=== PATIENT | male | born 1985 | race Two or more races ===

== ENCOUNTER 2024-02-04 09:47 | Inpatient (IN) | payer SELFPAY ==
[~2024-02-04] VITALS: Ht 170.2 cm; Wt 87.1 kg
[2024-02-04] VITALS (56 sets, daily range): BP systolic 60–104; BP diastolic 28–85; PULSE 96–123; RESP 4–30; TEMP 33.336–36.114; O2SAT 92–100
[2024-02-04] MEDS: SODIUM CHLORIDE 0.9% (SEPSIS BOLUS) IV ONE ×2 (10:29→17:38)
[2024-02-04] MEDS: KETAMINE HCL 50 MG/ML 10ML IV NR (10:42)
[2024-02-04] MEDS: LEVETIRACETAM 500MG PREMIX 100 ML IV NR ×2 (10:43→11:00)
[2024-02-04] MEDS ORDERED: OCTREOTIDE 1,000 MCG in SODIUM CHLORIDE 0.9% 100 ML IV ONE (10:45)
[2024-02-04] MEDS: PROPOFOL 10MG/ML 100ML 100 ML IV SCH (10:45)
[2024-02-04] MEDS ORDERED: PANTOPRAZOLE 80 MG in SODIUM CHLORIDE 0.9% 100 ML IV SCH (10:45)
[2024-02-04 10:47] LABS: MEAN CORPUSCULAR HEMOGLOBIN 22.9 pg (28.0-32.0); MEAN CORPUSCULAR HGB CONC 24.6 g/dL (31.0-37.0); MEAN CORPUSCULAR VOLUME 93.1 fL (80.0-94.0); MEAN PLATELET VOLUME 10.9 fl (7.4-10.4); PLATELET 74 x1000/uL (130-400); RED BLOOD CELL COUNT 1.39 mill/uL (4.7-6.1); RED CELL DISTRIBUTION WIDTH 20.2 % (11.6-14.6)
[2024-02-04 10:55] LABS: DIFFERENTIAL COMMENT 1
[2024-02-04 10:59] LABS: HEMOGLOBIN. 3.2 g/dL (14.0-18.0)
[2024-02-04 11:00] LABS: CHLORIDE 107 mEq/L (98-107); POTASSIUM 4.5 mEq/L (3.5-5.1); SODIUM 146 mEq/L (136-145)
[2024-02-04 11:01] LABS: CALCIUM 8.6 mg/dL (8.7-10.4)
[2024-02-04 11:05] LABS: AMMONIA 210 uMol/L (<32)
[2024-02-04 11:06] LABS: CREATININE 1.1 mg/dL (0.6-1.3); GLUCOSE 87 mg/dL (70-105); LACTIC ACID 23.4 mmol/L (0.4-2.0); UREA NITROGEN BLOOD 20 mg/dL (9-23)
[2024-02-04 11:07] LABS: TROPONIN I HIGH SENSITIVITY 7 ng/L (3.0-53)
[2024-02-04 11:12] LABS: CARBON DIOXIDE < 10 mEq/L (21-32)
[2024-02-04] MEDS: DOPAMINE 400MG/250ML PREMIX 250 ML IV ONE (11:15)
[2024-02-04] MEDS ORDERED: VANCOMYCIN 1G PREMIX 200 ML IV NR (11:15)
[2024-02-04] MEDS: KETAMINE HCL 50 MG/ML 10ML IV ONE (11:15)
[2024-02-04] MEDS: PROPOFOL 200MG/20ML VIAL IV ONE (11:15)
[2024-02-04] MEDS: OCTREOTIDE 1,000 MCG in SODIUM CHLORIDE 0.9% 98 ML IV ONE (11:15)
[2024-02-04 11:41] LABS: INR 1.9; PROTHROMBIN TIME 19.9 sec (9.6-11.0)
[2024-02-04] MEDS ORDERED: ACETAMINOPHEN 650MG SUPP PR PRN ×2 (12:15)
[2024-02-04] MEDS ORDERED: ONDANSETRON HCL 4MG/2ML INJ IV PRN (12:15)
[2024-02-04] MEDS ORDERED: PHENYLEPHRINE 50 MG in DEXT 5% WATER 245 ML IV PRN ×2 (12:15→13:30)
[2024-02-04] MEDS ORDERED: IPRATROPIUM/ALBUTEROL 0.5-3(2.5)MG/3ML NEB HHN PRN (12:15)
[2024-02-04] MEDS ORDERED: SODIUM BICARBONATE 100 MEQ in DEXTROSE 5% WATER 900 ML IV SCH (12:15)
[2024-02-04] MEDS: SODIUM BICARBONATE 8.4% 50MEQ/50ML SYR IV ONE (12:22)
[2024-02-04] MEDS: PANTOPRAZOLE 80 MG in SODIUM CHLORIDE 0.9% 100 ML IV SCH ×2 (12:23→22:44)
[2024-02-04] MEDS: ROCURONIUM BROMIDE 10MG/ML VIAL 5ML IV ONE (12:24)
[2024-02-04] MEDS: NOREPINEPHRINE 8MG/250ML PMX 250 ML IV PRN ×2 (12:37→19:58)
[2024-02-04 12:46] LABS: BG BASE EXCESS -21.6 mmol/L (-2.0-3.0); BG CARBOXYHEMOGLOBIN 1.6 % (0.5-1.5); BG DEOXYHEMOGLOBIN 0.3 % (0.0-5.0); BG FRACTION INSPIRED OXYGEN 100; BG HCO3 ACT 8.8 mmol/L (21.0-28.0); BG METHEMOGLOBIN 0.2 % (0.5-1.5); BG OXYGEN SATURATION 99.7 % (94.0-98.0); BG OXYHEMOGLOBIN 97.9 % (94.0-98.0); BG PO2 350.8 mmHg (83.0-108.0); BG SAMPLE SITE RIGHT RADIAL; BG TOTAL HEMOGLOBIN 6.4 g/dL (13.5-17.5); BG VENT MODE VENT - AC
[2024-02-04] MEDS: SODIUM BICARBONATE 8.4% 50MEQ/50ML SYR IV NR ×2 (12:58→22:22)
[2024-02-04] MEDS ORDERED: MVI, ADULT NO.1 10 ML, FOLIC ACID 1 MG, THIAMINE HCL 100 MG in SODIUM CHLORIDE 0.9% 1,0... IV ONE (13:00)
[2024-02-04 13:26] LABS: TROPONIN I HIGH SENSITIVITY 34 ng/L (3.0-53)
[2024-02-04 13:27] LABS: ETHANOL BLOOD 48 mg/dL (<10)
[2024-02-04] MEDS ORDERED: LACTULOSE ENEMA 1,000ML BOTTLE PR NR (13:30)
[2024-02-04 13:57] LABS: AMMONIA 416 uMol/L (<32)
[2024-02-04] MEDS ORDERED: EPINEPHRINE 5 MG in SODIUM CHLORIDE 0.9% 245 ML IV PRN (14:00)
[2024-02-04] MEDS ORDERED: VASOPRESSIN 20 UNIT in SODIUM CHLORIDE 0.9% 99 ML IV PRN (14:00)
[2024-02-04] MEDS ORDERED: LACTULOSE 20G/30ML UDC PO SCH (14:00)
[2024-02-04] MEDS ORDERED: VANCOMYCIN 1.5GM PMX (XELLIA) 300 ML IV SCH (15:00)
[2024-02-04] MEDS: VASOPRESSIN 20 UNIT in SODIUM CHLORIDE 0.9% 99 ML IV PRN (15:05)
[2024-02-04] MEDS: DOPAMINE 800MG PREMIX (DOUBLE) 250 ML IV PRN (15:06)
[2024-02-04] MEDS: SODIUM BICARBONATE 100 MEQ in DEXTROSE 5% WATER 900 ML IV SCH (15:06)
[2024-02-04] MEDS: THIAMINE HCL 100 MG in SODIUM CHLORIDE 0.9% 49 ML IV NR (15:07)
[2024-02-04] MEDS: EPINEPHRINE 5 MG in SODIUM CHLORIDE 0.9% 245 ML IV PRN (15:09)
[2024-02-04] MEDS: EPINEPHRINE 10 MG in SODIUM CHLORIDE 0.9% 240 ML IV PRN (15:41)
[2024-02-04] MEDS: PHENYLEPHRINE 100 MG in DEXT 5% WATER 240 ML IV PRN (15:48)
[2024-02-04] MEDS ORDERED: OXYMETAZOLINE HCL NASAL SPRAY 15ML BOTHNSTRLS PRN (16:45)
[2024-02-04] MEDS ORDERED: PHENYLEPHRINE HCL 1% 30ML NASAL SPRAY BOTHNSTRLS PRN (16:45)
[2024-02-04] MEDS: NOREPINEPHRINE 32 MG in DEXT 5% WATER 218 ML IV PRN (17:37)
[2024-02-04] MEDS: VANCOMYCIN 1.5GM/250ML 250 ML IV SCH (17:40)
[2024-02-04] MEDS ORDERED: CALCIUM CHLORIDE 1GM/10ML SYR IV NR (17:59)
[2024-02-04 18:00] LABS: CHLORIDE 109 mEq/L (98-107); SODIUM 148 mEq/L (136-145)
[2024-02-04 18:01] LABS: CALCIUM 6.4 mg/dL (8.7-10.4)
[2024-02-04 18:05] LABS: GLUCOSE 190 mg/dL (70-105)
[2024-02-04 18:06] LABS: UREA NITROGEN BLOOD 19 mg/dL (9-23)
[2024-02-04 18:07] LABS: CREATINE KINASE 491 IU/L (46-171)
[2024-02-04 18:08] LABS: HEMATOCRIT 33.9 % (42.0-52.0); HEMOGLOBIN 9.8 g/dL (14.0-18.0)
[2024-02-04 18:13] LABS: CARBON DIOXIDE < 10 mEq/L (21-32); CREATININE 1.6 mg/dL (0.6-1.3); PHOSPHORUS 9.1 mg/dL (2.5-4.9)
[2024-02-04 18:23] LABS: ANISOCYTOSIS 2+; HYPOCHROMASIA 1+; NUCLEATED RED BLOOD CELLS 1 /100 WBC; PLATELET ESTIMATE DECREASED
[2024-02-04] MEDS: PIPERACILLIN/TAZO 3.375G/50ML 50 ML IV SCH (19:03)
[2024-02-04] MEDS: RIFAXIMIN 550 MG TABLET PO SCH (19:59)
[2024-02-04 22:11] LABS: BG BASE EXCESS -28.8 mmol/L (-2.0-3.0); BG CARBOXYHEMOGLOBIN 0.2 % (0.5-1.5); BG DEOXYHEMOGLOBIN 4.7 % (0.0-5.0); BG FRACTION INSPIRED OXYGEN 100; BG METHEMOGLOBIN 0.2 % (0.5-1.5); BG OXYGEN SATURATION 95.3 % (94.0-98.0); BG OXYHEMOGLOBIN 94.9 % (94.0-98.0); BG PCO2 53.3 mmHg (35.0-48.0); BG PH 6.736 (7.350-7.450); BG PO2 104.3 mmHg (83.0-108.0); BG SAMPLE SITE RIGHT RADIAL; BG VENT MODE VENT - AC
[2024-02-04] MEDS: VANCOMYCIN 1GM PMX (XELLIA) 200 ML IV SCH (22:23)
[2024-02-04 23:31] LABS: HEMATOCRIT. 33.7 % (42.0-52.0); HEMOGLOBIN. 10.5 g/dL (14.0-18.0); MEAN CORPUSCULAR HEMOGLOBIN 30.2 pg (28.0-32.0); MEAN CORPUSCULAR HGB CONC 31.1 g/dL (31.0-37.0); MEAN PLATELET VOLUME 8.3 fl (7.4-10.4); PLATELET 54 x1000/uL (130-400); RED BLOOD CELL COUNT 3.48 mill/uL (4.7-6.1); RED CELL DISTRIBUTION WIDTH 15.9 % (11.6-14.6)
[2024-02-04 23:38] LABS: CHLORIDE 104 mEq/L (98-107); POTASSIUM 4.2 mEq/L (3.5-5.1); SODIUM 144 mEq/L (136-145)
[2024-02-04 23:39] LABS: CARBON DIOXIDE 13 mEq/L (21-32)
[2024-02-04 23:40] LABS: CALCIUM 6.8 mg/dL (8.7-10.4)
[2024-02-04 23:44] LABS: CREATININE 1.8 mg/dL (0.6-1.3)
[2024-02-04 23:45] LABS: GLUCOSE 323 mg/dL (70-105); UREA NITROGEN BLOOD 17 mg/dL (9-23)
[2024-02-04 23:46] LABS: ALANINE AMINOTRANSFERASE 233 IU/L (10-49); ASPARTATE AMINOTRANSFERASE 759 IU/L (<34); CREATINE KINASE 786 IU/L (46-171)
[2024-02-04 23:47] LABS: BILIRUBIN DIRECT 0.7 mg/dL (<=3.0); BILIRUBIN TOTAL 3.3 mg/dL (0.1-1.0); PROTEIN TOTAL 3.6 g/dL (6.0-8.3)
[2024-02-04 23:55] LABS: DIFFERENTIAL COMMENT 1
[2024-02-05] VITALS (66 sets, daily range): BP systolic 64–151; BP diastolic 33–126; PULSE 0–113; RESP 0–75; TEMP 36.3918–36.44736; O2SAT 64–100
[2024-02-05 01:08] LABS: CLARITY URINE CLOUDY (CLEAR); COLOR URINE YELLOW (YELLOW); GLUCOSE URINE NEGATIVE (NEGATIVE); KETONES URINE 1+ (NEGATIVE); LEUKOCYTE ESTERASE URINE NEGATIVE (NEGATIVE); NITRITE URINE NEGATIVE (NEGATIVE); OCCULT BLOOD URINE NEGATIVE (NEGATIVE); PROTEIN URINE 3+ (NEGATIVE); SPECIFIC GRAVITY URINE 1.021 (1.005-1.030); UROBILINOGEN URINE 0.2 E.U./dL (0.2-1.0)
[2024-02-05 01:11] LABS: *AMPHETAMINES SCREEN URINE NEGATIVE (NEGATIVE)
[2024-02-05 01:12] LABS: *BARBITURATES SCREEN URINE NEGATIVE (NEGATIVE); *BENZODIAZEPINES SCREEN URINE NEGATIVE (NEGATIVE); *COCAINE SCREEN URINE NEGATIVE (NEGATIVE); CANNABINOID URINE SCREEN NEGATIVE (NEGATIVE); ECSTASY MDMA SCREEN URINE NEGATIVE (NEGATIVE); METHADONE URINE SCREEN NEGATIVE (NEGATIVE); OPIATES URINE SCREEN NEGATIVE (NEGATIVE); PHENCYCLIDINE URINE SCREEN NEGATIVE (NEGATIVE)
[2024-02-05 02:56] LABS: HEMATOCRIT 28.7 % (42.0-52.0); HEMOGLOBIN 8.5 g/dL (14.0-18.0)
[2024-02-05 05:08] LABS: BACTERIA URINE NONE SEEN
[2024-02-05 05:09] LABS: BG BASE EXCESS -25.8 mmol/L (-2.0-3.0); BG CARBOXYHEMOGLOBIN 0.2 % (0.5-1.5); BG DEOXYHEMOGLOBIN 13.7 % (0.0-5.0); BG FRACTION INSPIRED OXYGEN 100; BG HCO3 ACT 6.3 mmol/L (21.0-28.0); BG METHEMOGLOBIN 0.2 % (0.5-1.5); BG OXYGEN SATURATION 86.2 % (94.0-98.0); BG OXYHEMOGLOBIN 85.9 % (94.0-98.0); BG PCO2 35.4 mmHg (35.0-48.0); BG PH 6.869 (7.350-7.450); BG SAMPLE SITE RIGHT RADIAL; BG TOTAL HEMOGLOBIN 9.2 g/dL (13.5-17.5); BG VENT MODE VENT - AC
[2024-02-05] MEDS: SODIUM BICARBONATE 8.4% 50MEQ/50ML SYR IV NR ×2 (06:02→12:54)
[2024-02-05 06:30] LABS: HEMATOCRIT. 24.4 % (42.0-52.0); HEMOGLOBIN. 7.6 g/dL (14.0-18.0); MEAN CORPUSCULAR HEMOGLOBIN 31.1 pg (28.0-32.0); MEAN CORPUSCULAR HGB CONC 31.1 g/dL (31.0-37.0); MEAN CORPUSCULAR VOLUME 99.9 fL (80.0-94.0); MEAN PLATELET VOLUME 10.4 fl (7.4-10.4); RED BLOOD CELL COUNT 2.44 mill/uL (4.7-6.1); RED CELL DISTRIBUTION WIDTH 16.5 % (11.6-14.6); WHITE BLOOD COUNT 8.7 x1000/uL (4.5-11.0)
[2024-02-05 06:37] LABS: CHLORIDE 107 mEq/L (98-107); POTASSIUM 4.1 mEq/L (3.5-5.1); SODIUM 144 mEq/L (136-145)
[2024-02-05 07:04] LABS: ALANINE AMINOTRANSFERASE 369 IU/L (10-49); ALBUMIN 1.4 g/dL (3.2-4.8); ASPARTATE AMINOTRANSFERASE 1505 IU/L (<34); BILIRUBIN DIRECT 0.7 mg/dL (<=3.0); BILIRUBIN TOTAL 3.4 mg/dL (0.1-1.0); CALCIUM 6.7 mg/dL (8.7-10.4); GLUCOSE 212 mg/dL (70-105); HDL CHOLESTEROL < 20 mg/dL (>55); IRON 147 ug/dL (65-175); LDL CHOLESTEROL 19 mg/dL (5-100); PROTEIN TOTAL 2.5 g/dL (6.0-8.3); TOTAL IRON BINDING CAPACITY 198 ug/dl (250-425); TRIGLYCERIDE 610 mg/dL (0-150); UREA NITROGEN BLOOD 16 mg/dL (9-23)
[2024-02-05 07:05] LABS: CHOLESTEROL 41 mg/dL (<200)
[2024-02-05 07:06] LABS: CARBON DIOXIDE < 10 mEq/L (21-32)
[2024-02-05 07:07] LABS: CREATININE 2.4 mg/dL (0.6-1.3)
[2024-02-05 07:15] LABS: AMMONIA > 750 uMol/L (<32)
[2024-02-05 08:08] LABS: DIFFERENTIAL COMMENT 1
[2024-02-05 08:10] LABS: PLATELET 40 x1000/uL (130-400)
[2024-02-05] MEDS: OCTREOTIDE 1,000 MCG in SODIUM CHLORIDE 0.9% 98 ML IV PRN (10:08)
[2024-02-05 11:18] LABS: HEMATOCRIT 26.2 % (42.0-52.0); HEMOGLOBIN 7.5 g/dL (14.0-18.0)
[2024-02-05] MEDS: EPINEPHRINE 20 MG in SODIUM CHLORIDE 0.9% 480 ML IV PRN (11:34)
[2024-02-05 11:49] LABS: LACTIC ACID 23.7 mmol/L (0.4-2.0)
[2024-02-05 12:34] LABS: NUCLEATED RED BLOOD CELLS 4 /100 WBC; PLATELET ESTIMATE MARKEDLY DECREASED
[2024-02-05 12:44] LABS: BG BASE EXCESS -25.4 mmol/L (-2.0-3.0); BG CARBOXYHEMOGLOBIN 2.8 % (0.5-1.5); BG DEOXYHEMOGLOBIN 16.2 % (0.0-5.0); BG FRACTION INSPIRED OXYGEN 100; BG HCO3 ACT 6.2 mmol/L (21.0-28.0); BG METHEMOGLOBIN 0.3 % (0.5-1.5); BG OXYGEN SATURATION 83.3 % (94.0-98.0); BG OXYHEMOGLOBIN 80.7 % (94.0-98.0); BG PCO2 35.4 mmHg (35.0-48.0); BG PO2 62.9 mmHg (83.0-108.0); BG SAMPLE SITE RIGHT RADIAL; BG TOTAL HEMOGLOBIN 7.1 g/dL (13.5-17.5); BG VENT MODE VENT - AC
[2024-02-05 12:53] LABS: ANISOCYTOSIS 1+; NUCLEATED RED BLOOD CELLS 8 /100 WBC; PLATELET ESTIMATE MARKEDLY DECREASED
[2024-02-05 13:57] LABS: HEMATOCRIT 21.9 % (42.0-52.0)
[2024-02-05] MEDS ORDERED: LACTULOSE 20G/30ML UDC PO SCH (14:00)
[2024-02-05 14:03] LABS: HEMOGLOBIN 6.4 g/dL (14.0-18.0)
[2024-02-05] MEDS ORDERED: SODIUM BICARBONATE 100 MEQ in DEXTROSE 5% WATER 900 ML IV SCH (14:30)
== END 2024-02-05 15:40 | DRG 720 ==
LOC: ER 10:48 → MICUSO 12:10 → EDBEDREQ 12:13 → EDBEDREQTM 12:13
PROVIDERS: ADMIT Hospitalist; ATTEND Hospitalist
PROC: 0BH17EZ Insertion of Endotracheal Airway into Trachea, Via Natural or Artificial Opening (ICD-10-PCS; principal; 2024-02-04)
PROC: 5A1945Z Respiratory Ventilation, 24-96 Consecutive Hours (ICD-10-PCS; 2024-02-04)
PROC: 02H633Z Insertion of Infusion Device into Right Atrium, Percutaneous Approach (ICD-10-PCS; 2024-02-04)
PROC: B548ZZA Ultrasonography of Superior Vena Cava, Guidance (ICD-10-PCS; 2024-02-04)
PROC: 30233K1 Transfusion of Nonautologous Frozen Plasma into Peripheral Vein, Percutaneous Approach (ICD-10-PCS; 2024-02-04)
PROC: 30233N1 Transfusion of Nonautologous Red Blood Cells into Peripheral Vein, Percutaneous Approach (ICD-10-PCS; 2024-02-04)
PROC: 30233R1 Transfusion of Nonautologous Platelets into Peripheral Vein, Percutaneous Approach (ICD-10-PCS; 2024-02-04)
PROC: 30233M1 Transfusion of Nonautologous Plasma Cryoprecipitate into Peripheral Vein, Percutaneous Approach (ICD-10-PCS; 2024-02-04)
PROC: 5A12012 Performance of Cardiac Output, Single, Manual (ICD-10-PCS; 2024-02-05)
DX: A41.9 Sepsis, unspecified organism (principal); J96.01 Acute respiratory failure with hypoxia; R57.1 Hypovolemic shock; I81 Portal vein thrombosis; K70.40 Alcoholic hepatic failure without coma; G92.8 Other toxic encephalopathy; K92.2 Gastrointestinal hemorrhage, unspecified; D62 Acute posthemorrhagic anemia; D68.9 Coagulation defect, unspecified; E87.0 Hyperosmolality and hypernatremia; E87.20 Acidosis, unspecified; K70.30 Alcoholic cirrhosis of liver without ascites; F10.129 Alcohol abuse with intoxication, unspecified; D69.59 Other secondary thrombocytopenia; K76.0 Fatty (change of) liver, not elsewhere classified; E87.4 Mixed disorder of acid-base balance; K76.82 Hepatic encephalopathy; J98.11 Atelectasis; Z59.00 Homelessness unspecified
CPT/HCPCS: 36415; 36600; 71045; 76700; 80048; 80061; 80076; 80305; 80320; 81003; 82140; 82375; 82550; 82607; 82728; 82746; 82805; 82962; 83540; 83550; 83605; 83735; 83880; 84100; 84145; 84484; 85014; 85018; 85025; 85044; 85379; 86850; 86900; 86920; 86927; 93005; 93970; 94002; 94003; 99291; J1265; J1953; J2354; J2470; J2543; J2704; J3370; J3411; J3490; J7030; J7050; J7060; J7070; P9012; P9016; P9017; P9034; G0480